=== PATIENT | male | born 1995 | race Caucasian/White ===

== ENCOUNTER 2023-02-24 00:35 | Emergency (ER) | payer MEDICAID ==
[~2023-02-24] VITALS: Ht 188 cm; Wt 81.6 kg
--- NOTE | 2023-02-24 00:36 | NUR ---
Patient being evaluated by physician at bedside.
--- NOTE | 2023-02-24 00:36 | NUR ---
PT FAIZA ROBISON, TAKEN TO CHAIR
[2023-02-24 00:37] VITALS: BP 117/72
--- NOTE | 2023-02-24 00:47 | NUR ---
Patient D/C to custody.
== END 2023-02-24 00:47 ==
LOC: MED 00:35
DX: I89.0 Lymphedema, not elsewhere classified (principal)
CPT/HCPCS: 99283